=== PATIENT | male | born 1940 | race Two or more races ===

== ENCOUNTER 2017-03-14 05:44 | Day surgery (SDC) | payer OTHER ==
[2017-03-14] VITALS (11 sets, daily range): BP systolic 141–159; BP diastolic 61–79; PULSE 54–64; RESP 11–18; Ht 162.6 cm; Wt 80.2 kg
[~2017-03-14] VITALS: Ht 162.6 cm; Wt 80.2 kg
[2017-03-14] MEDS ORDERED: PANT40TA4 PO (06:47)
[2017-03-14] MEDS ORDERED: METF500T4 PO (06:47)
[2017-03-14] MEDS ORDERED: DOXA4TAB3 PO (06:47)
[2017-03-14] MEDS ORDERED: METO-448 PO (06:47)
[2017-03-14] MEDS ORDERED: CALC-277 PO (06:47)
[2017-03-14] MEDS ORDERED: ATOR20TA38 PO (06:47)
[2017-03-14] MEDS ORDERED: ASPI-664 PO (06:47)
[2017-03-14] MEDS ORDERED: EPHEDrine SULFATE 50 MG/5 ML SYG ONE (07:00)
[2017-03-14] MEDS ORDERED: DEXAMETHASONE 4 MG/ML 1 ML INJ ONE (07:00)
[2017-03-14] MEDS ORDERED: BUPIVACAINE 0.25% (MPF) 30 ML INJ ONE (07:19)
--- NOTE | 2017-03-14 07:28 | HPN ---
Date/Time of Note Date/Time of Note DATE: 03/14/17 TIME: 07:28 Interval H&P Admission Note Pt. seen H&P reviewed: No system changes ROBERTA GILLETTE MD March 14, 2017 07:28
[2017-03-14] MEDS ORDERED: MIDAZOLAM 1 MG/ML 2 ML INJ ONE (07:37)
[2017-03-14] MEDS ORDERED: PROPOFOL 20 ML ONE (07:37)
[2017-03-14] MEDS ORDERED: FENTAnyl 50 MCG/ML VIAL ONE (07:37)
[2017-03-14] MEDS ORDERED: LIDOCAINE 1% (MDV) 20 ML INJ ONE (07:37)
[2017-03-14] MEDS ORDERED: PHENYLephrine (100 MCG/ML) 5ML SYG ONE (07:44)
[2017-03-14] MEDS ORDERED: CEFAZOLIN 1 GM INJ ONE (07:53)
[2017-03-14] MEDS ORDERED: ONDANSETRON 4 MG INJ ONE (07:53)
[2017-03-14] MEDS ORDERED: FAMOTIDINE 20 MG INJ ONE (07:53)
[2017-03-14] MEDS ORDERED: ONDANSETRON 4 MG INJ IV PRN ×2 (08:30→09:00)
[2017-03-14] MEDS ORDERED: HYDROmorphONE (0.2 MG/ML) 10ML SYG IV PRN ×2 (08:30)
[2017-03-14] MEDS ORDERED: MEPERIDINE 25 MG INJ IV PRN (08:30)
[2017-03-14] MEDS ORDERED: DIPHENHYDRAMINE 50 MG INJ IV PRN (08:30)
[2017-03-14] MEDS ORDERED: morphine 2 MG INJ IV PRN (09:00)
[2017-03-14] MEDS ORDERED: OXYCODONE/ACETAMINOPHEN (5/325) TAB PO PRN ×2 (09:00)
--- NOTE | 2017-03-14 09:52 | OPR ---
DATE OF OPERATION: PREOPERATIVE DIAGNOSIS: Third recurrence right inguinal hernia without obstruction. OPERATION PERFORMED: 1. Repair with extra large plug. 2. Right inguinal nerve block. POSTOPERATIVE DIAGNOSIS: Third recurrence right inguinal hernia without obstruction, direct. SURGEON: Roberta Hardy MD ANESTHESIA: General. ANESTHESIOLOGIST: Sukhdeep Shane DO OPERATIVE REPORT: After satisfactory general anesthesia was achieved, the abdomen was prepped and d raped. There was an oblique scar paralleling the groin crease. The right groin was entered through a transverse incision above and to the right of the pubic tubercle, measuring 6 cm. The incision w as carried down to the external oblique aponeurosis which was opened. There were no cord structures visible. There was a large direct inguinal hernia. This contained a loop of bowel which was reduc ed. The fascial defect was then occluded by placement of an extra-large plug secured circumferentia lly to healthy fascia with interrupted 3-0 Vicryl suture. Next, the flat portion of the mesh was cu t and fashioned to sit in the floor of the canal as an onlay. It was anchored at the pubic tubercle with 2-0 Novafil, laterally to inguinal ligament with interrupted 2-0 Novafil, and medially to conj oined tendon with interrupted 2-0 Novafil. Next, a right inguinal nerve block was performed, 10 mL of 0.25% plain Marcaine were injected into the fascia 1 cm medial and inferior to the right anterior iliac spine. Ten more mL of local anesthetic were injected directly into the wound. Teresa's fasc ia was closed with interrupted 3-0 Vicryl suture. Skin was closed with running 4-0 subcuticular Lars ryl. Operative blood loss less than 10 mL. Sponge and needle counts were reported as correct x2. The patient tolerated the procedure well and without incident or complication. Dictated By: ROBERTA [place]/ROLANDO Conf#: [id number] DID#: [id number] CC: Tyree Dorman;*EndCC*
== END 2017-03-14 10:26 | disposition home or self-care (01) ==
LOC: SDS 05:44
PROVIDERS: ATTEND Surgery
DX: K40.90 Unilateral inguinal hernia, without obstruction or gangrene, not specified as recurrent (principal); I25.10 Atherosclerotic heart disease of native coronary artery without angina pectoris; E11.9 Type 2 diabetes mellitus without complications; Z95.1 Presence of aortocoronary bypass graft
CPT/HCPCS: 49565; 49568; 82962; C1781; J0690; J1100; J2250; J2405; J3010; Z7512; Z7610; J2370